=== PATIENT | female | born 1980 | race African-American/Black ===

== ENCOUNTER 2024-10-23 13:31 | Observation (INO) | payer OTHER ==
[2024-10-23 14:34] LABS: Amphetamine,Urine NEGATIVE (NEGATIVE); Barbiturate,Urine NEGATIVE (NEGATIVE); Benzodiazepine,Urine NEGATIVE (NEGATIVE); Cocaine,Urine NEGATIVE (NEGATIVE); Methadone,Urine NEGATIVE (NEGATIVE); Opiate,Urine NEGATIVE (NEGATIVE); PCP,Urine NEGATIVE (NEGATIVE); THC,Urine NEGATIVE (NEGATIVE)
[2024-10-23] MEDS ORDERED: Sodium Chloride 0.9% 1000 ML 1,000 ML ONE (14:34)
[2024-10-23] MEDS: Sodium Chloride 0.9% 1000 ML 1,000 ML IV SCH ×2 (14:38→22:29)
[2024-10-23 14:39] LABS: Absolute Neutrophil Ct (ANC) 9.76 x10^3/uL (1.56-6.13); BASOPHIL % 0.2 % (0.1-1.2); Basophil (Absolute #) 0.03 x10^3/uL (0.01-0.08); Eosinophil % 0.5 % (0.7-5.8); Eosinophil (Absolute #) 0.07 x10^3/uL (0.04-0.36); Hemoglobin 15.2 g/dL (11.2-15.7); IMMATURE GRAN # 0.05 x10^3u/L (0.001-0.031); IMMATURE GRAN % 0.4 % (0.001-0.429); Lymphocyte (Absolute #) 2.37 x10^3/uL (1.18-3.74); Lymphocytes % 17.9 % (19.3-51.7); Mean Cell Volume 92.8 fL (79.4-94.8); Mean Corpuscular Hemoglobin 31.3 pg (25.6-32.2); Mean Corpuscular Hgb Concent. 33.8 g/dL (32.2-35.5); Mean Platelet Volume 10.4 fL (9.4-12.3); Monocyte (Absolute #) 0.93 x10^3/uL (0.24-0.86); Platelet Count 327 x10^3/uL (182-369); Red Blood Count 4.85 x10^6/uL (3.93-5.22); Red Cell Distribution Width 12.6 % (11.7-14.4); White Blood Count 13.2 x10^3/uL (3.98-10.04)
[2024-10-23 14:53] LABS: ALKALINE PHOSPHATASE 85 U/L (38-126); ANION GAP 19.1 MEQ/L (5-15); BLOOD UREA NITROGEN 11 mg/dL (7-17); CHLORIDE 97 mmol/L (98-107); Calcium 9.5 mg/dL (8.4-10.2); Carbon Dioxide 22 mmol/L (22-30); Creatinine 1 0.68 mg/dL (0.52-1.04); EST GLOMERULAR FILTRATION RATE 108.7 ML/MIN; ETHYL ALCOHOL < 10 mg/dL (0-10); Potassium 4.5 mmol/L (3.5-5.1); SGOT/AST 21 U/L (14-36); SGPT/ALT 27 U/L (0-35); SODIUM 133 mmol/L (135-145); Total Protein 6.2 g/dL (6.3-8.2)
[2024-10-23 15:06] LABS: Glucose 519 mg/dL (74-106)
[2024-10-23 15:24] LABS: Appearance Clear (Clear); Bacteria None Seen /HPF (None Seen); Bilirubin Negative (Negative); Blood Negative (Negative); Epithelial Cells Few /HPF (None Seen); Glucose, Urine >=1000 mg/dL (Negative); Hyaline Casts NONE SEEN /LPF (0-2); Ketones Negative (Negative); Leukocyte Esterase Negative (Negative); Nitrite Negative (Negative); Ph 5.5 (4.6-8.0); Protein,Urine Dip Negative (Negative); RBC 0-2 /HPF (0-5); Specific Gravity >=1.030 (1.005-1.030); Urobilinogen 0.2 mg/dL (0.2)
--- NOTE | 2024-10-23 15:27 | XRAY ---
Indication: Altered mental status. Multiple contiguous images obtained through the head without contrast. Comparison: None Normal appearing brain parenchyma, ventricles, and bony calvarium. Incidental 1.2 cm right maxillary sinus polyp/retention cyst. Remaining paranasal sinuses and mastoid air cells are clear. Impression: Right maxillary sinus polyp/retention cyst. Remaining CT head without contrast exam is normal.
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
[2024-10-23] MEDS ORDERED: ROCEPHIN 1 GM / 100 ML NaCl 1 GM/100 ML IVPB IV SCH (19:22)
[2024-10-23] MEDS ORDERED: BENTYL 20 MG PO PRN (19:23)
[2024-10-23] MEDS ORDERED: ZOFRAN ODT 4 MG PO PRN (19:23)
[2024-10-23] MEDS: HUMULIN R SQ PRN (20:00)
[2024-10-23] MEDS: HEPARIN 5000 UNITS/0.5 ML (HIGH RISK MED) SQ SCH (22:27)
[2024-10-23] MEDS: Flonase NASAL NS SCH (22:28)
[2024-10-23] MEDS: DELTASONE 5 MG PO SCH (22:29)
[2024-10-23] MEDS: Lantus Insulin SQ SCH (22:29)
[2024-10-24 07:58] VITALS: BP 120/86; PULSE 88; RESP 16; TEMP 97.9
[2024-10-24] MEDS ORDERED: ROCEPHIN 1 GM / 100 ML NaCl 1 GM/100 ML IVPB IV SCH (10:00)
[2024-10-24] MEDS ORDERED: Protonix 20MG Tablet PO SCH (10:00)
[2024-10-24] MEDS ORDERED: DELTASONE 5 MG PO SCH (10:00)
[2024-10-24] MEDS ORDERED: Flonase NASAL NS SCH (10:00)
[2024-10-24] MEDS ORDERED: NORVASC 5 MG PO SCH (10:00)
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
[2024-10-25 07:05] VITALS: O2SAT 98
== END 2024-10-24 08:25 | disposition left against medical advice (07) ==
LOC: ED 13:31 → MED SURG 17:35
PROVIDERS: ADMIT Internal Medicine; ATTEND Internal Medicine
DX: E11.65 Type 2 diabetes mellitus with hyperglycemia (principal); G93.40 Encephalopathy, unspecified; E86.0 Dehydration; Z59.10 Inadequate housing, unspecified; Z59.82 Transportation insecurity; Z63.79 Other stressful life events affecting family and household; Z59.00 Homelessness unspecified; E66.01 Morbid (severe) obesity due to excess calories; J33.8 Other polyp of sinus; F41.9 Anxiety disorder, unspecified; F32.A Depression, unspecified; D25.9 Leiomyoma of uterus, unspecified; F17.200 Nicotine dependence, unspecified, uncomplicated; Z79.899 Other long term (current) drug therapy
CPT/HCPCS: 36415; 70450; 80053; 80307; 81001; 82077; 82947; 83036; 84484; 85025; 93005; 93041; 94760; 99285; Q3014; 93268; 99284; J1644; J1815; A9270-GY; G0378